=== PATIENT | female | born 1950 | race Caucasian/White ===

== ENCOUNTER → 2018-07-08 | Outpatient (CLI) | payer MEDICARE, BC ==
[~2018-07-08] MED LIST: CITRACAL PLUS1 TAB; HCTZ; HCTZ 25MG TAB25 MG PO; LOPRESSOR100 MG PO; NORVASC 5MG5 MG/TAB PO; VITAMIN D31000 IU PO
== END ==
LOC: MC.RAD 06:55
DX: Z12.31 Encounter for screening mammogram for malignant neoplasm of breast (principal); Z98.890 Other specified postprocedural states; Z78.0 Asymptomatic menopausal state

== ENCOUNTER → 2020-08-21 | Outpatient (CLI) | payer MEDICARE, BC | LOC: MC.RAD 08:16 | DX: Z12.31 Encounter for screening mammogram for malignant neoplasm of breast (principal) ==

== ENCOUNTER → 2022-12-11 | Outpatient (CLI) | payer MEDICARE, BC | LOC: MC.RAD 13:54 | DX: Z12.31 Encounter for screening mammogram for malignant neoplasm of breast (principal) ==

== ENCOUNTER 2023-02-24 10:00 | Outpatient (RCR) | payer MEDICARE, BC | END 2023-03-14 | disposition home or self-care (01) | LOC: PT.GENESIS | DX: M23.92 Unspecified internal derangement of left knee (principal); M47.816 Spondylosis without myelopathy or radiculopathy, lumbar region ==